=== PATIENT | female | born 1935 | race Caucasian/White ===

== ENCOUNTER 2019-05-07 20:38 | Inpatient (IN) | payer MEDICARE, OTHER ==
[~2019-05-07] VITALS: Ht 162.6 cm; Wt 55.4 kg
[~2019-05-07 20:38] MED LIST: AMLO10 PO; AMLO5; AMLO5 PO; ASCO1ER; ASCO500 PO; ASPI81CH PO; ATEN25; ATEN50 PO; ATOR10; ATOR20 PO; ATOR40TA PO; CALGLU500; CALGLU500 PO; CIPR500 PO; DIGO.125; DOFE250; FAMO20 PO; FAMO40 PO; HYDACE5 PO; METO25ER; METO50; MULVITMINF PO; MULVITSO; NITR100CA PO; NITRSPRAY SL; OMEP20ER PO; OMEP40CA12 PO; ONDA4ODT MM; OXYACE10 PO; POLY17UD PO; WARF2; WARF3; WARF3 PO; WARF6; ZOLP6.25
[2019-05-07 21:02] LABS: BASOPHILS ABSOLUTE AUTO 0.06 K/mm3 (0.00-0.23); BASOPHILS PERCENT AUTO 1 % (0-2); EOSINOPHILS ABSOLUTE AUTO 0.17 K/mm3 (0.00-0.68); EOSINOPHILS PERCENT AUTO 1 % (0-6); Hematocrit 37.6 % (33.0-51.0); IMMATURE GRAN ABSOLUTE AUTO 0.08 K/mm3 (0.00-0.10); IMMATURE GRAN PERCENT AUTO 1 % (0-1); LYMPHOCYTES ABSOLUTE AUTO 4.61 K/mm3 (0.84-5.20); LYMPHOCYTES PERCENT AUTO 37 % (21-46); MONOCYTES ABSOLUTE AUTO 1.06 K/mm3 (0.16-1.47); MONOCYTES PERCENT AUTO 9 % (4-13); Mean Corpuscular HGB 31.9 pg (26.0-34.0); Mean Corpuscular HGB Conc 31.9 g/dL (31.5-36.5); Mean Corpuscular Volume 100 fL (80-100); Mean Platelet Volume 10.7 fL (9.1-12.4); NEUTROPHILS ABSOLUTE AUTO 6.49 K/mm3 (1.96-9.15); NEUTROPHILS PERCENT AUTO 52 % (41-73); Platelet Count 193 K/mm3 (150-400); RDW Coefficient Variation 13.8 % (11.7-14.2); RDW Standard Deviation 50.4 fL (35.1-46.3); Red Blood Cell Count 3.76 M/mm3 (3.80-5.20); White Blood Cell Count 12.47 K/mm3 (4.00-11.30)
[2019-05-07 21:26] LABS: Alanine Aminotransfer (ALT/SGP 21 U/L (12-78); Albumin, Blood 4.1 g/dL (3.4-5.0); Alk Phos 84 U/L (50-136); Anion Gap 12 mmol/L (6-16); Aspartate Aminotrans (AST/SGOT 15 U/L (12-37); Bilirubin, Total 0.4 mg/dL (0.1-1.0); Blood Urea Nitrogen 17 mg/dL (8-24); Bun/Creatinine Ratio 23.3 (12.0-20.0); CO2, Blood 22 mmol/L (21-32); Calcium, Blood 9.3 mg/dL (8.5-10.1); Chloride, Blood 106 mmol/L (98-108); Creatinine, Blood 0.73 mg/dL (0.40-1.00); Globulin, Blood 4.1 g/dL (2.2-4.0); Glomerular Filtration Rate >60 (60-); Glucose, Blood 249 mg/dL (70-99); Sodium, Blood 140 mmol/L (136-145); Total Protein, Blood 8.2 g/dL (6.4-8.2); Troponin I <0.015 ng/mL (0.000-0.040)
[2019-05-07 21:58] LABS: Source, Urine Catheter
[2019-05-07 22:02] LABS: Bilirubin, Urine Neg (Neg); Blood, Urine 3+ (Neg); Glucose Qualitative, Urine 2+ (Neg); Ketones, Urine 2+ (Neg); Leukocyte Esterase, Urine Neg (Neg); Nitrite, Urine Neg (Neg); Protein, Urine 3+ (Neg); Specific Gravity, Urine 1.025 (1.003-1.022); Urobilinogen, Urine NORM (Normal)
[2019-05-07 22:08] LABS: Appearance, Urine Clear (Clear); Color, Urine Yellow (P-Yellow)
[2019-05-07 22:10] LABS: White Blood Cells, Urine 0-2 /hpf (0-5)
[2019-05-07 22:11] LABS: Bacteria Rare /hpf; Squamous Epithelial Cells Few /hpf (Few)
--- NOTE | 2019-05-07 23:49 | NUR ---
TOOK REPORT FROM ER NURSE SIOBHAN
[2019-05-08] MEDS ORDERED: ASCO500 PO (01:16)
[2019-05-08] MEDS ORDERED: OMEP20ER PO (01:21)
[2019-05-08] MEDS ORDERED: THERA1 EACH PO (01:22)
[2019-05-08] MEDS ORDERED: SIME80CH PO (01:24)
[2019-05-08 05:20] LABS: BASOPHILS ABSOLUTE AUTO 0.03 K/mm3 (0.00-0.23); BASOPHILS PERCENT AUTO 0 % (0-2); EOSINOPHILS PERCENT AUTO 0 % (0-6); Hematocrit 37.7 % (33.0-51.0); IMMATURE GRAN ABSOLUTE AUTO 0.12 K/mm3 (0.00-0.10); IMMATURE GRAN PERCENT AUTO 1 % (0-1); LYMPHOCYTES PERCENT AUTO 3 % (21-46); MONOCYTES ABSOLUTE AUTO 1.31 K/mm3 (0.16-1.47); MONOCYTES PERCENT AUTO 6 % (4-13); Mean Corpuscular HGB 32.3 pg (26.0-34.0); Mean Corpuscular HGB Conc 31.8 g/dL (31.5-36.5); Mean Corpuscular Volume 101 fL (80-100); Mean Platelet Volume 10.8 fL (9.1-12.4); NEUTROPHILS ABSOLUTE AUTO 18.52 K/mm3 (1.96-9.15); NEUTROPHILS PERCENT AUTO 90 % (41-73); Platelet Count 174 K/mm3 (150-400); RDW Coefficient Variation 13.8 % (11.7-14.2); Red Blood Cell Count 3.72 M/mm3 (3.80-5.20); White Blood Cell Count 20.68 K/mm3 (4.00-11.30)
[2019-05-08 05:42] LABS: Anion Gap 15 mmol/L (6-16); Blood Urea Nitrogen 17 mg/dL (8-24); Bun/Creatinine Ratio 27.9 (12.0-20.0); CO2, Blood 13 mmol/L (21-32); Calcium, Blood 8.5 mg/dL (8.5-10.1); Chloride, Blood 110 mmol/L (98-108); Creatinine, Blood 0.61 mg/dL (0.40-1.00); Glomerular Filtration Rate >60 (60-); Glucose, Blood 316 mg/dL (70-99); Magnesium, Blood 1.9 mg/dL (1.6-2.4); Sodium, Blood 138 mmol/L (136-145)
--- NOTE | 2019-05-08 05:59 | NUR ---
PATIENT AGITIATED AND OBVIOULY IN PAIN, FUSTRATED THAT SHE CANT COMMUNICATE, GAVE PT PAIN MED AND ZOFRAN PER EMAR. ASSESSMENTS COMPLETED. MEDS GIVEN PER EMAR. BS CHECKED AND MED GIVEN PER EMAR; CALL [facility]OCK WITHIN REACH.
--- NOTE | 2019-05-08 19:17 | NUR ---
SHIFT SUMMARY: PATIENT CT OF ABD THIS SHIFT - RESULTS INDICATE THROMBOSIS, GAS, & INFARCTS - PATIENT HAS TRANSITIONED TO COMFORT CARE. MEDICATED FOR PAIN & ANXIETY PER EMAR. IV ABX & REHYDRATION D/C'd. REPORT GIVEN TO ONCOMING RN.
--- NOTE | 2019-05-08 19:23 | NUR ---
CLinical Visit: Pt is drowsy from contrast medication and CT scan. Reveiwed with before visit: she will be giving pt information that may change her care plan. Present with family, many members. They are laughing in the room amongst themselves. After 's visit, pt is placed on comfort care. Daughter of pt is a nurse at this facility and does not need anything at this time. She is comforting the rest of her family. Reveiwed medications. Pt has morphine listed as an allergy - reviewed reaction with family. They report that the pt frequently states that she is allergic to this medication due to "she doesn't like how it makes her feel out of control." Medication will be ordered for symptom managment. No other concerns from the family. Palliative care to remain involved during pt's visit; she will be switched to comfort measures only.
--- NOTE | 2019-05-08 20:11 | NUR ---
PT FAMILY CALLED RN TO ROOM REQUESTING SUCTION, PT SPITTING UP THOMAS COLORED FLUIDS. PT TIME OF 1941. AFTER CARE PERFORMED. PATIENT AT BEDSIDE, TRYING TO REACH OTHERS CLOSE BY. BODY TO BE SENT TO: [facility] HERE IN [place].
--- NOTE | 2019-05-08 20:29 | NUR ---
DR CARR NOTIFIED OF PATIENT TIME OF . SPIRITUAL CARE DECLINED BY FAMILY AT THIS TIME.
--- NOTE | 2019-05-08 22:00 | NUR ---
BODY WAS REMOVED AND TRANSPORTED TO [facility] IN [place].
== END 2019-05-08 19:42 | DRG 388 ==
LOC: ER 20:38 → MEDS 23:10
PROVIDERS: Emergency Medicine; ADMIT Internal Medicine
DX: K56.609 Unspecified intestinal obstruction, unspecified as to partial versus complete obstruction (principal); K55.069 Acute infarction of intestine, part and extent unspecified; I69.351 Hemiplegia and hemiparesis following cerebral infarction affecting right dominant side; Z51.5 Encounter for palliative care; I69.320 Aphasia following cerebral infarction; I10 Essential (primary) hypertension; E11.69 Type 2 diabetes mellitus with other specified complication; E78.5 Hyperlipidemia, unspecified; E87.6 Hypokalemia; I25.10 Atherosclerotic heart disease of native coronary artery without angina pectoris; I48.2 Chronic atrial fibrillation; I71.4 Abdominal aortic aneurysm, without rupture; J44.9 Chronic obstructive pulmonary disease, unspecified; Z87.891 Personal history of nicotine dependence; Z95.0 Presence of cardiac pacemaker; Z66 Do not resuscitate
CPT/HCPCS: 36415; 74176; 74177; 80048; 80053; 81001; 82947; 83036; 83605; 83690; 83735; 84145; 84484; 85025; 93005; 93010; 96361; 96365; 96375; 99285-25; J0360; J1650; J1815; J2060; J2270; J2405; J2543; J3010; J3480; J7030; J7050; J7120; P9612; Q9967